=== PATIENT | female | born 1995 | race Caucasian/White ===

== ENCOUNTER 2017-02-19 16:53 | Emergency (ER) | payer BC, MEDICAID ==
[2017-02-19] MEDS ORDERED: ALBUTEROL SULFATE (0.083%) 2.5 MG/3 ML NEB INH ONE (17:03)
[2017-02-19] MEDS ORDERED: DIPHENHYDRAMINE HCL IV 50 MG/ML VIAL IVP ONE (17:03)
[2017-02-19] MEDS ORDERED: METHYLPREDNISOLONE PF 125MG/VIAL IVP ONE (17:06)
--- NOTE | 2017-02-19 17:14 | Emergency Department Record ---
History of Present Illness - General Chief complaint: Allergic Reaction Stated complaint: ALLERGIC REACTION Time Seen by Provider: 02/19/17 17:03 Source: Patient Mode of Arrival: Wheelchair Limitations: No limitations - History of Present Illness Initial Comments: 22 yo female presents with itching, feeling short of breath with a tightness in the throat about 45 minutes after starting Levaquin and Prednisone. She has had sinus drainage, congestion, cough for about one week. She was seen in the [facility] care and started on the medications. This was the first time to her knowledge she has had a quinolone. MD Complaint: Allergic reaction Onset/Timin -: Minutes(s) Exposure: Unknown Symptoms: Itching Severity: Moderate Treatment Prior to Arrival: Steroids (she had 10mg of Prednisone) Previous Allergy History: None - Related Data Previous Rx's Medication Instructions Recorded Clindamycin HCl [Cleocin HCl] 300 mg PO TID #21 capsule 02/19/17 Epinephrine [Epipen] 0.3 mg IM ASDIR PRN #2 syr 02/19/17 Prednisone [Prednisone 20Mg] 20 mg PO BID #10 tab 02/19/17 Allergies Allergy/AdvReac Type Severity Reaction Status Date / Time doxycycline Allergy Intermediate NAUSEA Unverified 02/15/17 15:44 Penicillins Allergy Intermediate VOMITING Unverified 02/15/17 15:44 Travel Screening - Travel/Exposure Within Last 30 Days Have you traveled within the last 30 days?: No Review of Systems Constitutional: Denies: Chills, Fever, Malaise, Weakness Eyes: Denies: Eye discharge ENT: Reports: Congestion, Ear pain, Throat pain Respiratory: Reports: Cough, Wheezes Cardiovascular: Denies: Chest pain, Palpitations, Syncope Endocrine: Denies: Fatigue Gastrointestinal: Denies: Abdominal pain, Diarrhea, Nausea, Vomiting Genitourinary: Denies: Dysuria, Urgency Musculoskeletal: Denies: Arthralgia, Back pain, Myalgia, Neck pain Skin: Reports: Pruritus. Denies: Bruising, Change in color, Rash Neurological: Denies: Headache Psychiatric: Denies: Anxiety Hematological/Lymphatic: Denies: Blood Clots, Easy bleeding, Easy bruising, Swollen glands Past Medical History - SOCIAL HISTORY Smoking Status: Former smoker Alcohol Use: Occassional Drug Use: None - RESPIRATORY Hx Respiratory Disorders: Yes Hx Asthma: Yes - CARDIOVASCULAR Hx Cardio Disorders: No - NEURO Hx Neuro Disorders: Yes Hx Headaches: Yes - GI Hx GI Disorders: No - Hx Genitourinary Disorders: No - ENDOCRINE Hx Endocrine Disorders: No - MUSCULOSKELETAL Hx Musculoskeletal Disorders: No - PSYCH Hx Psych Problems: Yes Hx Anxiety: Yes Hx Depression: Yes - HEMATOLOGY/ONCOLOGY Hx Hematology/Oncology Disorders: No Family Medical History Any Significant Family History?: Yes Hx Alcohol Use: Father, Mother Hx Anxiety: Father, Mother Hx Dementia: Grandparents Hx Depression: Father, Mother Hx Seizures: Mother Physical Exam - General General Appearance: Alert, Oriented x3, Cooperative, No acute distress Limitations: No limitations - Head Head exam: Normal inspection - Eye Eye exam: Normal appearance, PERRL. negative: Conjunctival injection, Periorbital swelling - ENT ENT exam: Mucous membranes moist, Normal orophraynx, TM's normal bilaterally. negative: Mucous membranes dry Ear exam: Normal external inspection. negative: External canal tenderness Nasal Exam: Discharge, Sinus tenderness. negative: Normal inspection, Active bleeding, Dried blood Mouth exam: Normal external inspection, Tongue normal Teeth exam: Normal inspection. negative: Dental caries Throat exam: Normal inspection. negative: Tonsillar erythema, Tonsillomegaly, Tonsillar exudate, R peritonsillar mass - Neck Neck exam: Normal inspection, Full ROM. negative: Lymphadenopathy, Tenderness - Respiratory Respiratory exam: Decreased breath sounds. negative: Accessory muscle use, Chest wall tenderness, Prolonged expiratory, Respiratory distress, Rhonchi, Stridor, Wheezes - Cardiovascular Cardiovascular Exam: Regular rate, Normal rhythm, Normal heart sounds - GI/Abdominal GI/Abdominal exam: Soft - Rectal Rectal exam: Deferred - exam: Deferred - Extremities Extremities exam: Normal inspection, Full ROM, Normal capillary refill. negative: Tenderness - Back Back exam: Reports: Normal inspection, Full ROM. Denies: Muscle spasm, Rash noted, Tenderness - Neurological Neurological exam: Alert, Normal gait, Oriented X3. negative: Altered - Psychiatric Psychiatric exam: Normal affect, Normal mood. negative: Agitated, Anxious - Skin Skin exam: Dry, Intact, Normal color, Warm Course Vital Signs 02/19/17 16:55 Temperature 98.7 F Pulse Rate 102 H Respiratory 18 Rate Blood Pressure 137/86 Pulse Ox 98 - Reevaluation(s) Reevaluation #1: Vitals reviewed No acute distress Mildly diminished lung sounds no strider No hives visible. She feels mildly itchy. 02/19/17 17:13 Reevaluation #2: The patient was rechecked after the breathing treatment She subjectively feels much better She is moving air well and feels significant improvement of the subjective throat symptoms. 02/19/17 17:25 Reevaluation #3: The patient continues to do well The influenza swab was negative for A and B 02/19/17 17:51 Reevaluation #4: The patient is doing well. DC home with Epipen, Prednisone,Clindamycin, RT taught her how to use the Albuterol inhaler that [facility] dispensed. 02/19/17 18:36 Disposition Disposition: Discharge Clinical Impression: Sinusitis Qualifiers: Sinusitis location: unspecified location Chronicity: acute Recurrence: not specified as recurrent Qualified Code(s): J01.90 - Acute sinusitis, unspecified Allergic reaction caused by a drug Qualifiers: Encounter type: initial encounter Qualified Code(s): T78.40XA - Allergy, unspecified, initial encounter Disposition: Home, Self-Care Condition: (1) Good Instructions: Anaphylaxis (ED) Additional Instructions: Return if you have hives, swelling, shortness of breath or any new or concerning symptoms Stop the Levaquin and list it as an allergy Follow up with your doctor to discuss the use of EpiPens You may take Benadryl every 4-6 hours for itching or mild hives Prednisone 40mg daily for 5 days Albuterol 2 puffs every 4 hours if needed Clindamycin three times daily for one week Prescriptions: Clindamycin HCl [Cleocin HCl] 300 mg PO TID #21 capsule Epinephrine [Epipen] 0.3 mg IM ASDIR PRN #2 syr PRN Reason: Anaphylaxis Prednisone [Prednisone 20Mg] 20 mg PO BID #10 tab Forms: Patient Portal Access Time of Disposition: 17:52
[2017-02-19 17:36] LABS: INFLUENZA A NEGATIVE (NEGATIVE); INFLUENZA B NEGATIVE (NEGATIVE)
== END 2017-02-19 18:44 | disposition home or self-care (01) ==
LOC: ER 16:53
DX: T37.8X5A Adverse effect of other specified systemic anti-infectives and antiparasitics, initial encounter (principal); R06.02 Shortness of breath; L29.9 Pruritus, unspecified; R07.0 Pain in throat; J01.90 Acute sinusitis, unspecified
CPT/HCPCS: 87400; 94640; 96374; 96375; 99284; J1200; J2930; J7613

== ENCOUNTER 2017-04-25 23:41 | Emergency (ER) | payer MEDICAID ==
--- NOTE | 2017-04-26 | Emergency Department Record ---
History of Present Illness - General Chief Complaint: Ankle/Foot Injury Stated Complaint: ANKLE INJURY Time Seen by Provider: 04/25/17 23:55 Source: Patient Mode of Arrival: Ambulatory Limitations: No limitations - History of Present Illness Initial Comments: 22 yo female presents to ED with a CC of right foot injury earlier today while walking today in [place]. Patient reports that her foot "twisted", denies ankle pain, denies lower leg pain, and has been able to ambulate following her injury. Patient denies other injury, and denies health problems at her baseline. MD Complaint: Foot injury Onset/Timin -: Hour(s) Injury: Foot: Left Type of Injury: Inversion Place: Street/outdoors Severity: Mild Severity scale (1-10): 2 Improves With: Rest Worsens With: Movement, Weight bearing, Other Context: Fall, Walking Treatments Prior to Arrival: Cold therapy - Related Data Previous Rx's Medication Instructions Recorded Epinephrine [Epipen] 0.3 mg IM ASDIR PRN #2 syr 02/19/17 Allergies Allergy/AdvReac Type Severity Reaction Status Date / Time doxycycline Allergy Intermediate NAUSEA Unverified 02/15/17 15:44 Penicillins Allergy Intermediate VOMITING Unverified 02/15/17 15:44 levofloxacin [From Levaquin] Allergy ANAPHYLAXIS Verified 04/25/17 23:44 Travel Screening - Travel/Exposure Within Last 30 Days Have you traveled within the last 30 days?: No - Travel/Exposure Within Last Year Have you traveled outside the [place] in the last year?: No - Additonal Travel Details Have you been exposed to anyone with a communicable illness?: No - Travel Symptoms Symptom Screening: None Review of Systems Constitutional: Denies: Chills, Fever, Malaise, Night sweats Eyes: Denies: Eye discharge, Eye pain ENT: Denies: Congestion, Ear pain Respiratory: Denies: Cough, Dyspnea Cardiovascular: Denies: Chest pain, Dyspnea on exertion Endocrine: Denies: Fatigue, Heat or cold intolerance Gastrointestinal: Denies: Abdominal pain, Nausea, Vomiting Genitourinary: Denies: Incontinence, Retention Musculoskeletal: Reports: Arthralgia. Denies: Back pain, Gout, Joint swelling Skin: Denies: Bruising, Change in color Neurological: Denies: Abnormal gait, Confusion, Headache, Seizure Psychiatric: Denies: Anxiety Hematological/Lymphatic: Denies: Anemia, Blood Clots Past Medical History - SOCIAL HISTORY Smoking Status: Current every day smoker Alcohol Use: Occassional Drug Use: None - RESPIRATORY Hx Respiratory Disorders: Yes Hx Asthma: Yes - CARDIOVASCULAR Hx Cardio Disorders: No - NEURO Hx Neuro Disorders: Yes Hx Headaches: Yes - GI Hx GI Disorders: No - Hx Genitourinary Disorders: No - ENDOCRINE Hx Endocrine Disorders: No - MUSCULOSKELETAL Hx Musculoskeletal Disorders: No - PSYCH Hx Psych Problems: Yes Hx Anxiety: Yes Hx Depression: Yes - HEMATOLOGY/ONCOLOGY Hx Hematology/Oncology Disorders: No Family Medical History Any Significant Family History?: No Hx Alcohol Use: Father, Mother Hx Anxiety: Father, Mother Hx Dementia: Grandparents Hx Depression: Father, Mother Hx Seizures: Mother Physical Exam - General General Appearance: Alert, Oriented x3, Cooperative, No acute distress Limitations: No limitations - Head Head exam: Atraumatic, Normocephalic, Normal inspection Head exam detail: negative: Abrasion, Contusion, Breen's sign, General tenderness, Hematoma, Laceration - Eye Eye exam: Normal appearance. negative: Conjunctival injection, Periorbital swelling, Periorbital tenderness, Scleral icterus - ENT Ear exam: negative: Auricular hematoma, Auricular trauma Nasal Exam: negative: Active bleeding, Discharge, Dried blood, Foreign body Mouth exam: negative: Drooling, Laceration, Muffled voice, Tongue elevation - Neck Neck exam: Normal inspection. negative: Meningismus, Tenderness - Respiratory Respiratory exam: Normal lung sounds bilaterally. negative: Rales, Respiratory distress, Rhonchi, Stridor - Cardiovascular Cardiovascular Exam: Regular rate, Normal rhythm, Normal heart sounds Peripheral Pulses: 3+: Dorsalis Pedis (R) - GI/Abdominal GI/Abdominal exam: Soft. negative: Rebound, Rigid, Tenderness - Rectal Rectal exam: Deferred - exam: Deferred - Extremities Extremities exam: Tenderness, Other (Mild STS and TTP over the right mid-foot, no pain with palpation over the ankle/proximal fibula, compartments are soft on examination). negative: Calf tenderness, Pedal edema - Back Back exam: Reports: Normal inspection. Denies: CVA tenderness (R), CVA tenderness (L) - Neurological Neurological exam: Alert, Normal gait, Oriented X3 - Psychiatric Psychiatric exam: Normal affect, Normal mood - Skin Skin exam: Normal color. negative: Abrasion Type of lesion: negative: abrasion Course - Reevaluation(s) Reevaluation #1: 04/26/17 00:13 Right Foot: No acute fracture identified Patient was updated on radiology results, pain is well controlled, and the patient appears stable for discharge at this time. Disposition Disposition: Discharge Clinical Impression: Right foot sprain Qualifiers: Encounter type: initial encounter Qualified Code(s): S93.601A - Unspecified sprain of right foot, initial encounter Disposition: Home, Self-Care Condition: (2) Stable Instructions: Foot Contusion (ED) Additional Instructions: Return to ED if your symptoms worsen or if you have any concerns. Ice, Ibuprofen as directed. Follow-up with your family doctor in 3-5 days as directed. Forms: Patient Portal Access Time of Disposition: 00:00
--- NOTE | 2017-04-27 10:10 | RADIOLOGY REPORT ---
EXAM: RIGHT FOOT, THREE VIEWS HISTORY: FALL, PAIN ACROSS THE TOP OF THE RIGHT FOOT. TECHNIQUE: Three views of the right foot were obtained. Comparison: None. Encounter: Initial. FINDINGS: No hallux valgus. No acute fracture or dislocation. No degenerative change. IMPRESSION: NEGATIVE RIGHT FOOT EXAMINATION. JOB NUMBER: [id number] MTDD
== END 2017-04-26 00:25 | disposition home or self-care (01) ==
LOC: ER 23:41
DX: S93.601A Unspecified sprain of right foot, initial encounter (principal); X50.0XXA Overexertion from strenuous movement or load, initial encounter; Y92.410 Unspecified street and highway as the place of occurrence of the external cause
CPT/HCPCS: 99283

== ENCOUNTER 2017-07-24 01:25 | Emergency (ER) | payer MEDICAID ==
[2017-07-24] MEDS ORDERED: 0.9 % SODIUM CHLORIDE 1,000 ML BAG IV ONE (01:43)
[2017-07-24] MEDS ORDERED: DIPHENHYDRAMINE HCL IV 50 MG/ML VIAL IVP ONE (01:43)
[2017-07-24] MEDS ORDERED: ACETAMINOPHEN 1,000 MG/100 ML BTL IVPB ONE (01:44)
--- NOTE | 2017-07-24 01:50 | Emergency Department Record ---
History of Present Illness - General Chief Complaint: Headache Migraine Stated Complaint: MIGRAINE X 4 DAYS/NOW HAVING MEMORY LOSS Time Seen by Provider: 07/24/17 01:34 Source: Patient Mode of Arrival: Ambulatory Limitations: No limitations - History of Present Illness Initial Comments: 22 yo female presents with headache for 4 days that she feels is similar to her migraines. It is frontal. Initially it was gradual onset with some associated nausea and vomiting. She had diarrhea as well. The headache is worse at that end of the day and better in the morning. No vision changes. She feels like she is having memory changes with forgetfulness, trouble remembering tasks at work, and not remembering a drive home. No weakness, no coordination changes. She denies alcohol or drugs. She had onset of migraines at age 11. They were initially frequent but now about 1-2 per years. PCP is the [facility]. MD Complaint: Headache, "Migraine", Other Onset/Timin -: Days(s) Onset Description: Gradual, At rest Location: Frontal Severity scale (1-10): 6 Quality: Aching Consistency: Constant, Getting worse Improves With: Nothing Worsens With: Light Associated Symptoms: Confusion Treatments Prior to Arrival: None - Related Data Previous Rx's Medication Instructions Recorded Epinephrine [Epipen] 0.3 mg IM ASDIR PRN #2 syr 02/19/17 Ondansetron [Zofran Odt] 4 mg PO Q8H #15 tab.rapdis 07/24/17 Allergies Allergy/AdvReac Type Severity Reaction Status Date / Time doxycycline Allergy Intermediate NAUSEA Unverified 07/20/17 14:28 Penicillins Allergy Intermediate VOMITING Unverified 07/20/17 14:28 levofloxacin [From Levaquin] Allergy ANAPHYLAXIS Unverified 07/20/17 14:28 Travel Screening - Travel/Exposure Within Last 30 Days Have you traveled within the last 30 days?: No Review of Systems Constitutional: Denies: Chills, Fever, Weakness Eyes: Denies: Eye discharge, Eye pain, Photophobia ENT: Denies: Congestion, Throat pain Respiratory: Denies: Cough, Dyspnea, Hemoptysis, Stridor, Wheezes Cardiovascular: Denies: Chest pain, Palpitations, Syncope Endocrine: Reports: Fatigue Gastrointestinal: Reports: Diarrhea, Nausea, Vomiting Genitourinary: Denies: Dysuria, Urgency Musculoskeletal: Denies: Arthralgia, Back pain, Myalgia, Neck pain Skin: Denies: Bruising, Change in color, Rash Neurological: Reports: Confusion (memory changes per patient), Headache. Denies : Abnormal gait, Numbness, Seizure, Tingling, Tremors, Vertigo, Weakness Psychiatric: Denies: Anxiety Hematological/Lymphatic: Denies: Blood Clots, Easy bleeding, Easy bruising Past Medical History - SOCIAL HISTORY Smoking Status: Current every day smoker Alcohol Use: Occasional Drug Use: None - RESPIRATORY Hx Respiratory Disorders: Yes Hx Asthma: Yes - CARDIOVASCULAR Hx Cardio Disorders: No - NEURO Hx Neuro Disorders: Yes Hx Headaches: Yes - GI Hx GI Disorders: No - Hx Genitourinary Disorders: No - ENDOCRINE Hx Endocrine Disorders: No - MUSCULOSKELETAL Hx Musculoskeletal Disorders: No - PSYCH Hx Psych Problems: Yes Hx Anxiety: Yes Hx Depression: Yes - HEMATOLOGY/ONCOLOGY Hx Hematology/Oncology Disorders: No Family Medical History Any Significant Family History?: Yes Hx Alcohol Use: Father, Mother Hx Anxiety: Father, Mother Hx Dementia: Grandparents Hx Depression: Father, Mother Hx Seizures: Mother Physical Exam - General General Appearance: Alert, Oriented x3, Cooperative, Other (Answers questions, no congusion, appropriate) Limitations: No limitations - Head Head exam: Atraumatic, Normocephalic, Normal inspection - Eye Eye exam: Normal appearance, PERRL, EOMI. negative: Conjunctival injection, Nystagmus, Periorbital swelling, Scleral icterus - ENT ENT exam: Normal exam, Mucous membranes moist Ear exam: Normal external inspection Nasal Exam: Normal inspection Mouth exam: Normal external inspection Teeth exam: Normal inspection - Neck Neck exam: Normal inspection, Full ROM. negative: Lymphadenopathy, Tenderness - Respiratory Respiratory exam: Normal lung sounds bilaterally. negative: Respiratory distress - Cardiovascular Cardiovascular Exam: Regular rate, Normal rhythm, Normal heart sounds - GI/Abdominal GI/Abdominal exam: Soft. negative: Tenderness - Rectal Rectal exam: Deferred - exam: Deferred - Extremities Extremities exam: Normal inspection, Full ROM, Normal capillary refill. negative: Tenderness - Back Back exam: Reports: Normal inspection, Full ROM. Denies: Muscle spasm, Rash noted, Tenderness - Neurological Neurological exam: Alert, CN II-XII intact, Normal gait, Oriented X3, Reflexes normal. negative: Abnormal gait, Altered, Motor sensory deficit - Psychiatric Psychiatric exam: Flat affect. negative: Agitated, Anxious - Skin Skin exam: Dry, Intact, Normal color, Warm. negative: Cyanosis, Diaphoretic, Erythema Course Vital Signs 07/24/17 01:37 Temperature 98.1 F Pulse Rate [ 78 Left Brachial] Respiratory 18 Rate Blood Pressure 124/74 [Left Arm] Pulse Ox 99 - Reevaluation(s) Reevaluation #1: The patient is A and O x's 4 currently She is not confused, no issues with recall of current or remote events Given her recent memory issues labs, UA, CT, alcohol and UDS ordered 07/24/17 01:51 Reevaluation #2: HCT negative 07/24/17 02:50 All labs, UDS, Alcohol negative 07/24/17 02:50 Medical Decision Making - Lab Data Result diagrams: 07/24/17 01:55 07/24/17 01:55 Disposition Disposition: Discharge Clinical Impression: Migraine Qualifiers: Migraine type: unspecified Status migrainosus presence: without status migrainosus Intractability: not intractable Qualified Code(s): G43.909 - Migraine, unspecified, not intractable, without status migrainosus Disposition: Home, Self-Care Condition: (1) Good Instructions: Migraine Headache (ED) Additional Instructions: Call your doctor for close follow up this week Return if worse, fever, pain, nausea, dizzy or concerns Prescriptions: Ondansetron [Zofran Odt] 4 mg PO Q8H #15 tab.rapdis Forms: Patient Portal Access Time of Disposition: 02:58 Quality - Quality Measures Quality Measures: N/A - Blood Pressure Screening Does Patient Have Any of the Following: No Blood Pressure Classification: Pre-Hypertensive BP Reading Systolic Measurement: 124 Diastolic Measurement: 74 Screening for High Blood Pressure: < Pre-Hypertensive BP, F/U Documented > [ G8950] Pre-Hypertensive Follow-up Interventions: Referral to alternative/primary care provider.
[2017-07-24 02:16] LABS: BASO % 0.6 % (0-6); EOS % 1.2 % (0-6); GRAN % 47.4 % (47-80); HEMATOCRIT 37.9 % (35.0-47.0); HEMOGLOBIN 12.9 gm/dl (11.6-16.0); LYMPH % 42.4 % (16-45); MEAN CELL VOLUME 86.7 fl (81-97); MEAN CORPUSCULAR HEMOGLOBIN 29.5 pg (27-33); MEAN PLATELET VOLUME 9.5 fl (7.4-10.4); MONO % 8.4 % (0-9); PLATELET COUNT 412 K/uL (130-400); RED BLOOD COUNT 4.37 M/uL (3.80-5.40); RED CELL DISTRIBUTION WIDTH 12.1 % (11.5-14.5); WHITE BLOOD COUNT W/O DIFF 12.2 K/uL (4.2-12.2)
[2017-07-24 02:17] LABS: AMPHETAMINE SCREEN URINE NOT DETECTED; BARBITURATE SCREEN URINE NOT DETECTED; BENZODIAZEPINE SCREEN URINE NOT DETECTED; COCAINE SCREEN URINE NOT DETECTED; HCG,QUALITATIVE URINE NEGATIVE (NEGATIVE); METHADONE SCREEN URINE NOT DETECTED; METHAMPHETAMINE SCREEN NOT DETECTED; OPIATE SCREEN URINE NOT DETECTED; OXYCODONE SCREEN URINE NOT DETECTED; PHENCYCLIDINE SCREEN URINE NOT DETECTED; PROPOXYPHENE SCREEN URINE NOT DETECTED; THC SCREEN URINE NOT DETECTED; TRICYCLIC ANTIDEPRESSANT SCRN NOT DETECTED; URINE APPEARANCE CLEAR; URINE BILIRUBIN NEGATIVE (NEGATIVE); URINE BLOOD NEGATIVE (NEGATIVE); URINE COLOR COLORLESS; URINE GLUCOSE (UA) NEGATIVE (NEGATIVE); URINE KETONE NEGATIVE (NEGATIVE); URINE LEUKOCYTE ESTERASE NEGATIVE (NEGATIVE); URINE NITRITE NEGATIVE (NEGATIVE); URINE PROTEIN NEGATIVE (NEGATIVE); URINE UROBILINOGEN 0.2 E.U./dL (0.20 - 1.00)
[2017-07-24 02:26] LABS: ALB/GLOB RATIO 1.4 (1.1-1.8); ALBUMIN 4.5 gm/dL (3.5-5.0); ALKALINE PHOSPHATASE 85 U/L (38-126); ALT/SGPT 51 U/L (9-52); ANION GAP 8.7 (7-16); AST/SGOT 25 U/L (14-36); BILIRUBIN,TOTAL 0.52 mg/dL (0.2-1.3); BLOOD UREA NITROGEN 13 mg/dL (7-17); CARBON DIOXIDE 25.3 mmol/L (22-30); CREATININE 0.8 mg/dL (0.52-1.04); EST GLOMERULAR FILTRATION RATE > 60 ml/min; GLUCOSE,RANDOM 96 mg/dL (70-110); TOTAL PROTEIN 7.7 gm/dL (6.3-8.2)
--- NOTE | 2017-07-24 21:54 | CT SCAN REPORT ---
EXAM: CT SCAN HEAD WO CONTRAST HISTORY: ACUTE GENERALIZED MIGRAINE AURA, AFFECT NOT SPECIFIED. MEMORY LOSS PER PATIENT. COMPARISON: None. TECHNIQUE: Contiguous axial images from the cerebral convexities to the foramen magnum were obtained without contrast. FINDINGS: Brain volume is normal. No acute intracranial hemorrhage, mass effect , or midline shift. No CT evidence of acute infarct. Ventricles, basal cisterns , and sulci are within normal limits. Osseous structures, soft tissues, and paranasal sinuses are unremarkable. IMPRESSION: NORMAL HEAD CT. JOB NUMBER: [id number] [facility]
== END 2017-07-24 03:18 | disposition home or self-care (01) ==
LOC: ER 01:25
DX: G43.909 Migraine, unspecified, not intractable, without status migrainosus (principal); R11.2 Nausea with vomiting, unspecified; R19.7 Diarrhea, unspecified
CPT/HCPCS: 99284 ×2; 96374; 96375; 85025; 80053; 81003; 81025; 80305; 70450; G0480; 80320; J1200; J7030

== ENCOUNTER 2017-08-29 15:15 | Emergency (ER) | payer MEDICAID ==
[2017-08-29] MEDS ORDERED: ONDANSETRON 4 MG ODT TABLET SL ONE (15:32)
--- NOTE | 2017-08-29 15:37 | Emergency Department Record ---
History of Present Illness - General Chief complaint: Vomiting Stated complaint: NAUSEA,VOMITTING,BLACKED OUT Time Seen by Provider: 08/29/17 15:19 Source: Patient Mode of Arrival: Ambulatory Limitations: No limitations - History of Present Illness Initial comments: The patient states she is here due to having a week of nausea intermittently with vomiting. She also has been very stressed out at work recently and called in sick today so she needs a work note. The nausea has mostly resolved today and she has had no vomiting or diarrhea for a few days. The patient states she believes her main problem is that she is under a lot of stress and also has pain over her entire body. The total body pain is also chronic and not new today. She states she may have blacked out yesterday from the stress when she was working but she never did fall or have any LOC. She also did finish her work shift. complaint: Nausea Onset/Timin -: Week(s) Description of Vomiting: Food contents, Watery Consistency: Intermittent Improves with: None Worsens with: None - Related Data Home Medications Medication Instructions Recorded Confirmed Last Taken Alprazolam [Alprazolam] 0.25 mg PO ASDIR 08/29/17 08/29/17 Unknown Previous Rx's Medication Instructions Recorded Epinephrine [Epipen] 0.3 mg IM ASDIR PRN #2 syr 02/19/17 Ondansetron [Zofran Odt] 4 mg SL .Q4-6H PRN #8 tab.rapdis 08/29/17 Allergies Allergy/AdvReac Type Severity Reaction Status Date / Time doxycycline Allergy Intermediate NAUSEA Verified 08/29/17 15:20 Penicillins Allergy Intermediate VOMITING Verified 08/29/17 15:20 levofloxacin [From Levaquin] Allergy ANAPHYLAXIS Verified 08/29/17 15:20 Travel Screening - Travel/Exposure Within Last 30 Days Have you traveled within the last 30 days?: No - Travel/Exposure Within Last Year Have you traveled outside the [place] in the last year?: No - Additonal Travel Details Have you been exposed to anyone with a communicable illness?: No - Travel Symptoms Symptom Screening: None Review of Systems Constitutional: Denies: Chills, Fever Eyes: Denies: Eye discharge ENT: Denies: Congestion Respiratory: Denies: Cough, Dyspnea Past Medical History - SOCIAL HISTORY Smoking Status: Former smoker Alcohol Use: None Drug Use: None - RESPIRATORY Hx Respiratory Disorders: Yes Hx Asthma: Yes - CARDIOVASCULAR Hx Cardio Disorders: No - NEURO Hx Neuro Disorders: Yes Hx Headaches: Yes - GI Hx GI Disorders: No - Hx Genitourinary Disorders: No - ENDOCRINE Hx Endocrine Disorders: No - MUSCULOSKELETAL Hx Musculoskeletal Disorders: No - PSYCH Hx Psych Problems: Yes Hx Anxiety: Yes Hx Depression: Yes - HEMATOLOGY/ONCOLOGY Hx Hematology/Oncology Disorders: No Family Medical History Any Significant Family History?: Yes Hx Alcohol Use: Father, Mother Hx Anxiety: Father, Mother Hx Dementia: Grandparents Hx Depression: Father, Mother Hx Seizures: Mother Physical Exam - General General Appearance: Alert, Oriented x3, Cooperative, No acute distress - Head Head exam: Atraumatic, Normocephalic, Normal inspection - Eye Eye exam: Normal appearance, PERRL - ENT Throat exam: Normal inspection. negative: Tonsillar erythema, Tonsillar exudate - Neck Neck exam: Normal inspection, Full ROM. negative: Tenderness - Respiratory Respiratory exam: Normal lung sounds bilaterally. negative: Respiratory distress - Cardiovascular Cardiovascular Exam: Regular rate, Normal rhythm, Normal heart sounds - GI/Abdominal GI/Abdominal exam: Soft, Normal bowel sounds. negative: Tenderness - Extremities Extremities exam: Normal inspection, Full ROM, Normal capillary refill. negative: Tenderness - Neurological Neurological exam: Alert, Normal gait. negative: Abnormal gait, Motor sensory deficit - Psychiatric Psychiatric exam: Flat affect Course Vital Signs 08/29/17 15:23 Temperature 98.4 F Pulse Rate 83 Respiratory 18 Rate Blood Pressure 122/72 Pulse Ox 98 - Reevaluation(s) Reevaluation #1: The patient is resting comfortably. I did discuss the normal UA with her and the need for F/U. 08/29/17 15:54 Disposition Disposition: Discharge Clinical Impression: Nausea Disposition: Home, Self-Care Condition: (1) Good Instructions: Acute Nausea and Vomiting (ED) Additional Instructions: Please use the Zofran if needed. Please see your PCP this week for recheck. Prescriptions: Ondansetron [Zofran Odt] 4 mg SL .Q4-6H PRN #8 tab.rapdis PRN Reason: Nausea Forms: Patient Portal Access Time of Disposition: 15:55 Quality - Quality Measures Quality Measures: N/A - Blood Pressure Screening View Details: Yes Does Patient Have Any of the Following: No Blood Pressure Classification: Pre-Hypertensive BP Reading Systolic Measurement: 122 Diastolic Measurement: 72 Screening for High Blood Pressure: < Pre-Hypertensive BP, F/U Documented > [ G8950] Pre-Hypertensive Follow-up Interventions: Referral to alternative/primary care provider.
[2017-08-29 15:46] LABS: URINE APPEARANCE CLEAR; URINE BILIRUBIN NEGATIVE (NEGATIVE); URINE BLOOD NEGATIVE (NEGATIVE); URINE COLOR YELLOW; URINE GLUCOSE (UA) NEGATIVE (NEGATIVE); URINE KETONE NEGATIVE (NEGATIVE); URINE LEUKOCYTE ESTERASE NEGATIVE (NEGATIVE); URINE NITRITE NEGATIVE (NEGATIVE); URINE PROTEIN NEGATIVE (NEGATIVE); URINE UROBILINOGEN 0.2 E.U./dL (0.20 - 1.00)
== END 2017-08-29 16:02 | disposition home or self-care (01) ==
LOC: ER 15:15
DX: R11.0 Nausea (principal)
CPT/HCPCS: 81003; 81025; 99282

== ENCOUNTER 2018-03-07 02:58 | Emergency (ER) | payer MEDICAID ==
--- NOTE | 2018-03-07 03:17 | Emergency Department Record ---
History of Present Illness - General Chief complaint: Rash Stated complaint: ALLERGIC REACTION? Time Seen by Provider: 03/07/18 02:58 Source: Patient Mode of Arrival: Ambulatory Limitations: No limitations - History of Present Illness Initial comments: 23 yo female presents to ED for evaluation of "bruising under the arms and decreased sleep" after being started on a liquid steroid medication for pharyngitis 36 hours ago. Patient reports that she was seen and evaluated at an urgent care Wednesday for sore throat symptoms, strep was negative, was started on the steroid for her sore throat symptoms. Patient denies throat swelling or difficulty swallowing, denies health problems at her baseline. MD complaint: Rash Onset/Timin -: Days(s) Location: LUE, RUE Severity: Mild Consistency: Constant Improves with: None Worsens with: None Context: None Associated symptoms: Denies other symptoms Treatments Prior to Arrival: Corticosteroid - Related Data Previous Rx's Medication Instructions Recorded Epinephrine [Epipen] 0.3 mg IM ASDIR PRN #2 syr 02/19/17 Hyoscyamine Sulfate [Levsin-Sl] 0.125 mg SL Q8H PRN #15 tab.subl 02/17/18 Allergies Allergy/AdvReac Type Severity Reaction Status Date / Time doxycycline Allergy Intermediate NAUSEA Unverified 02/17/18 18:38 Penicillins Allergy Intermediate VOMITING Unverified 02/17/18 18:38 levofloxacin [From Levaquin] Allergy ANAPHYLAXIS Unverified 02/17/18 18:38 Review of Systems Constitutional: Denies: Chills, Fever, Malaise, Night sweats Eyes: Denies: Eye discharge, Eye pain ENT: Reports: Throat pain. Denies: Congestion, Ear pain, Epistaxis Respiratory: Denies: Cough, Dyspnea Cardiovascular: Denies: Chest pain, Dyspnea on exertion Endocrine: Denies: Fatigue, Heat or cold intolerance Gastrointestinal: Denies: Abdominal pain, Nausea, Vomiting Genitourinary: Denies: Incontinence, Retention Musculoskeletal: Denies: Arthralgia, Back pain Skin: Reports: Bruising. Denies: Change in color Neurological: Denies: Abnormal gait, Confusion, Headache, Seizure Psychiatric: Denies: Anxiety Hematological/Lymphatic: Denies: Anemia, Blood Clots Past Medical History - SOCIAL HISTORY Smoking Status: Current every day smoker Drug Use: None - RESPIRATORY Hx Respiratory Disorders: Yes Hx Asthma: Yes - CARDIOVASCULAR Hx Cardio Disorders: No - NEURO Hx Neuro Disorders: Yes Hx Headaches: Yes - GI Hx GI Disorders: No - Hx Genitourinary Disorders: No - ENDOCRINE Hx Endocrine Disorders: No - MUSCULOSKELETAL Hx Musculoskeletal Disorders: No - PSYCH Hx Psych Problems: Yes Hx Anxiety: Yes Hx Depression: Yes - HEMATOLOGY/ONCOLOGY Hx Hematology/Oncology Disorders: No Family Medical History Hx Alcohol Use: Father, Mother Hx Anxiety: Father, Mother Hx Dementia: Grandparents Hx Depression: Father, Mother Hx Seizures: Mother Physical Exam - General General Appearance: Alert, Oriented x3, Cooperative, No acute distress Limitations: No limitations - Head Head exam: Atraumatic, Normocephalic, Normal inspection Head exam detail: negative: Abrasion, Contusion, Breen's sign, General tenderness, Hematoma, Laceration - Eye Eye exam: Normal appearance. negative: Conjunctival injection, Periorbital swelling, Periorbital tenderness, Scleral icterus - ENT Ear exam: negative: Auricular hematoma, Auricular trauma Nasal Exam: negative: Active bleeding, Discharge, Dried blood, Foreign body Mouth exam: negative: Drooling, Laceration, Muffled voice, Tongue elevation Throat exam: Tonsillar erythema. negative: Tonsillomegaly, R peritonsillar mass , L peritonsillar mass - Neck Neck exam: Normal inspection. negative: Meningismus, Tenderness - Respiratory Respiratory exam: Normal lung sounds bilaterally. negative: Rales, Respiratory distress, Rhonchi, Stridor - Cardiovascular Cardiovascular Exam: Regular rate, Normal rhythm, Normal heart sounds - GI/Abdominal GI/Abdominal exam: Soft. negative: Rebound, Rigid, Tenderness - Rectal Rectal exam: Deferred - exam: Deferred - Extremities Extremities exam: Normal inspection, Other (The "bruising" to the axilla bialterally is related to pigmentation to the axilla, ). negative: Calf tenderness, Pedal edema, Tenderness - Back Back exam: Denies: CVA tenderness (R), CVA tenderness (L) - Neurological Neurological exam: Alert, Normal gait, Oriented X3 - Psychiatric Psychiatric exam: Normal affect, Normal mood - Skin Skin exam: Normal color. negative: Abrasion Type of lesion: negative: abrasion Course - Reevaluation(s) Reevaluation #1: 03/07/18 03:21 Patient has no clinical evidence for allergic reaction in examination, normal lung sounds, no hives, and no uvular edema or throat swelling symptoms. Patient's "bruising" appears to be the pigmentation of the axilla bilaterally, no ecchymosis is present. Patient also reports decreased ability to sleep ( likely side effect of steroid). Patient appears stable for discharge at this time. Disposition Disposition: Discharge Clinical Impression: Adverse effects of medication Qualifiers: Encounter type: initial encounter Qualified Code(s): T88.7XXA - Unspecified adverse effect of drug or medicament, initial encounter Disposition: Home, Self-Care Condition: (2) Stable Instructions: Adverse Drug Reaction (ED) Additional Instructions: Return to ED if your symptoms worsen or if you have any concerns. Follow-up with your family doctor in 3-5 days as directed. Forms: Patient Portal Access Time of Disposition: 03:17 Quality - Quality Measures Quality Measures: N/A - Blood Pressure Screening Does Patient Have Any of the Following: No Blood Pressure Classification: Pre-Hypertensive BP Reading Systolic Measurement: 120 Diastolic Measurement: 72 Screening for High Blood Pressure: < Pre-Hypertensive BP, F/U Documented > [ G8950] Pre-Hypertensive Follow-up Interventions: Referral to alternative/primary care provider.
== END 2018-03-07 03:21 | disposition home or self-care (01) ==
LOC: ER 02:58
DX: L27.0 Generalized skin eruption due to drugs and medicaments taken internally (principal); T49.6X5A Adverse effect of otorhinolaryngological drugs and preparations, initial encounter; F17.210 Nicotine dependence, cigarettes, uncomplicated
CPT/HCPCS: 99282

== ENCOUNTER 2018-04-09 21:05 | Emergency (ER) | payer MEDICAID ==
--- NOTE | 2018-04-09 21:29 | Emergency Department Record ---
History of Present Illness - General Chief complaint: ENT Stated complaint: SORE THROAT Time Seen by Provider: 04/09/18 21:23 Source: Patient Mode of Arrival: Ambulatory - History of Present Illness Initial comments: The patient states she developed a yellow productive cough yesterday. Today she was sleeping until about an hour ago when she awakened with a feeling of her throat swelling/difficulty breathing. It lasted for a bit after she awakened , so she came her to be checked. She denies exposure to strep, fevers, chills , SOB or symptoms now. She states she has allergies but takes nothing for them. She does have some clear nasal congestion currently. Onset/Timin -: Hour(s) Location: Throat Severity: Mild Severity scale (1-10): 6 Quality: Burning Consistency: Constant Improves with: None Worsens with: None Associated Symptoms: Cough - Related Data Previous Rx's Medication Instructions Recorded Epinephrine [Epipen] 0.3 mg IM ASDIR PRN #2 syr 02/19/17 Hyoscyamine Sulfate [Levsin-Sl] 0.125 mg SL Q8H PRN #15 tab.subl 02/17/18 Allergies Allergy/AdvReac Type Severity Reaction Status Date / Time doxycycline Allergy Intermediate NAUSEA Verified 04/09/18 21:08 Penicillins Allergy Intermediate VOMITING Verified 04/09/18 21:08 levofloxacin [From Levaquin] Allergy ANAPHYLAXIS Verified 04/09/18 21:08 Travel Screening - Travel/Exposure Within Last 30 Days Have you traveled within the last 30 days?: No - Travel/Exposure Within Last Year Have you traveled outside the [place] in the last year?: No - Additonal Travel Details Have you been exposed to anyone with a communicable illness?: No - Travel Symptoms Symptom Screening: None Review of Systems Reviewed: No additional complaints except as noted below Constitutional: Reports: As per HPI. Denies: Chills, Fever, Malaise, Night sweats, Weakness, Weight change Eyes: Reports: As per HPI. Denies: Eye discharge, Eye pain, Photophobia, Vision change ENT: Reports: As per HPI. Denies: Congestion, Dental pain, Ear pain, Epistaxis , Hearing loss, Throat pain Respiratory: Reports: As per HPI. Denies: Cough, Dyspnea, Hemoptysis, Stridor, Wheezes Cardiovascular: Reports: As per HPI. Denies: Arrhythmia, Chest pain, Dyspnea on exertion, Edema, Murmurs, Orthopnea, Palpitations, Paroxysmal nocturnal dyspnea, Rheumatic Fever, Syncope Endocrine: Reports: As per HPI. Denies: Fatigue, Heat or cold intolerance, Polydipsia, Polyuria Gastrointestinal: Reports: As per HPI. Denies: Abdominal pain, Constipation, Diarrhea, Hematemesis, Hematochezia, Melena, Nausea, Vomiting Genitourinary: Reports: As per HPI. Denies: Abnormal menses, Discharge, Dyspareunia, Dysuria, Frequency, Hematuria, Incontinence, Retention, Urgency Musculoskeletal: Reports: As per HPI. Denies: Arthralgia, Back pain, Gout, Joint swelling, Myalgia, Neck pain Skin: Reports: As per HPI. Denies: Bruising, Change in color, Change in hair/ nails, Lesions, Pruritus, Rash Neurological: Reports: As per HPI. Denies: Abnormal gait, Confusion, Headache, Numbness, Paresthesias, Seizure, Tingling, Tremors, Vertigo, Weakness Psychiatric: Reports: As per HPI. Denies: Anxiety, Auditory hallucinations, Depression, Homicidal thoughts, Suicidal thoughts, Visual hallucinations Hematological/Lymphatic: Reports: As per HPI. Denies: Anemia, Blood Clots, Easy bleeding, Easy bruising, Swollen glands Past Medical History - SOCIAL HISTORY Smoking Status: Current some day smoker Alcohol Use: Occasional Drug Use: None - RESPIRATORY Hx Respiratory Disorders: Yes Hx Asthma: Yes - CARDIOVASCULAR Hx Cardio Disorders: No - NEURO Hx Neuro Disorders: Yes Hx Headaches: Yes - GI Hx GI Disorders: No - Hx Genitourinary Disorders: No - ENDOCRINE Hx Endocrine Disorders: No - MUSCULOSKELETAL Hx Musculoskeletal Disorders: No - PSYCH Hx Psych Problems: Yes Hx Anxiety: Yes Hx Depression: Yes - HEMATOLOGY/ONCOLOGY Hx Hematology/Oncology Disorders: No Family Medical History Any Significant Family History?: No Hx Alcohol Use: Father, Mother Hx Anxiety: Father, Mother Hx Dementia: Grandparents Hx Depression: Father, Mother Hx Seizures: Mother Physical Exam - General General Appearance: Alert, Oriented x3, Cooperative, No acute distress - Head Head exam: Normal inspection - Eye Eye exam: Normal appearance, PERRL, EOMI Pupils: Normal accommodation - ENT ENT exam: Normal exam, Mucous membranes moist, Normal external ear exam, Normal orophraynx, TM's normal bilaterally Ear exam: Normal external inspection. negative: External canal tenderness Nasal Exam: Normal inspection. negative: Discharge, Sinus tenderness Mouth exam: Normal external inspection, Tongue normal. negative: Drooling, Muffled voice, Tongue elevation, Trismus Teeth exam: Normal inspection. negative: Dental caries Throat exam: Normal inspection, Other (no stridor or drooling, no uvular edema.) . negative: Tonsillar erythema, Tonsillomegaly, Tonsillar exudate - Neck Neck exam: Normal inspection, Full ROM. negative: Lymphadenopathy, Meningismus , Tenderness - Respiratory Respiratory exam: Normal lung sounds bilaterally. negative: Accessory muscle use, Decreased breath sounds, Prolonged expiratory, Rales, Respiratory distress , Rhonchi, Stridor, Wheezes - Cardiovascular Cardiovascular Exam: Regular rate, Normal rhythm, Normal heart sounds - GI/Abdominal GI/Abdominal exam: Soft, Normal bowel sounds. negative: Tenderness - Rectal Rectal exam: Deferred - exam: Deferred - Extremities Extremities exam: Normal inspection, Full ROM, Normal capillary refill. negative: Tenderness - Back Back exam: Reports: Normal inspection, Full ROM. Denies: Muscle spasm, Rash noted, Tenderness - Neurological Neurological exam: Alert, Normal gait, Oriented X3, Reflexes normal - Psychiatric Psychiatric exam: Normal affect, Normal mood - Skin Skin exam: Dry, Intact, Normal color, Warm Course Vital Signs 04/09/18 21:14 Temperature 98.0 F Pulse Rate [ 91 H Pulse Ox Probe] Respiratory 18 Rate Blood Pressure 109/71 [Left Arm] Pulse Ox 98 Medical Decision Making - Management Options MDM Management: No Additional Work-up Planned Disposition Disposition: Discharge Clinical Impression: Viral syndrome, Environmental allergies Condition: (1) Good Instructions: Viral Syndrome (ED), Allergies (ED) Additional Instructions: Home, rest. Follow up with PCP Dr Cardona as needed. Quality - Quality Measures Quality Measures: N/A - Blood Pressure Screening Does Patient Have Any of the Following: No Blood Pressure Classification: Normal BP Reading Systolic Measurement: 109 Diastolic Measurement: 71 Screening for High Blood Pressure: < Normal BP, F/U Not Required > [G8783]
[2018-04-09] MEDS ORDERED: METHYLPREDNISOLONE PF 125MG/VIAL IM ONE (21:30)
== END 2018-04-09 21:57 | disposition home or self-care (01) ==
LOC: ER 21:05
DX: T78.49XA Other allergy, initial encounter (principal); B37.9 Candidiasis, unspecified; R06.00 Dyspnea, unspecified; J02.9 Acute pharyngitis, unspecified; R05 Cough; F17.210 Nicotine dependence, cigarettes, uncomplicated
CPT/HCPCS: 96372; 99283; J2930

== ENCOUNTER 2019-10-19 16:14 | Emergency (ER) | payer MEDICAID ==
[2019-10-19] MEDS ORDERED: 0.9 % SODIUM CHLORIDE 1,000 ML BAG IV ONE (16:31)
--- NOTE | 2019-10-19 16:34 | Emergency Department Record ---
History of Present Illness - General Chief complaint: Fatigue and Weakness Stated complaint: WEAK AFTER GIVING BLOOD Time Seen by Provider: 10/19/19 16:28 Source: Patient Mode of Arrival: Ambulatory Limitations: No limitations - History of Present Illness Initial comments: The patient is here due to being very weak all day ever since she gave plasma this AM. She has had similar reactions in the past with giving plasma. She denies any AP, ZARATE, CP, SOB, or fevers. MD Complaint: Generalized weakness Onset/Timin -: Hour(s) Location: Generalized Severity: Mild Consistency: Constant Improves with: Rest Worsens with: Exertion Associated Symptoms: Nausea/vomiting - [place] Coma Scale Eye Response: (4) Open spontaneously Motor Response: (6) Obeys commands Verbal Response: (5) Oriented [place] Total: 15 - Related Data Allergies Allergy/AdvReac Type Severity Reaction Status Date / Time doxycycline Allergy Intermediate NAUSEA Unverified 10/19/19 16:45 Penicillins Allergy Intermediate VOMITING Unverified 10/19/19 16:45 clindamycin Allergy Mild VOMITING Unverified 10/19/19 16:45 levofloxacin [From Levaquin] Allergy ANAPHYLAXIS Unverified 10/19/19 16:45 Travel Screening - Travel/Exposure Within Last 30 Days Have you traveled within the last 30 days?: No - Travel/Exposure Within Last Year Have you traveled outside the [place] in the last year?: No - Additonal Travel Details Have you been exposed to anyone with a communicable illness?: No - Travel Symptoms Symptom Screening: None Review of Systems Constitutional: Reports: Malaise. Denies: Chills, Fever Eyes: Denies: Eye discharge ENT: Denies: Throat pain Respiratory: Denies: Cough, Dyspnea Cardiovascular: Denies: Chest pain Endocrine: Reports: Fatigue Past Medical History - SOCIAL HISTORY Smoking Status: Former smoker Alcohol Use: Occasional Drug Use: None - RESPIRATORY Hx Respiratory Disorders: Yes Hx Asthma: Yes - CARDIOVASCULAR Hx Cardio Disorders: No - NEURO Hx Neuro Disorders: Yes Hx Headaches: Yes - GI Hx GI Disorders: No - Hx Genitourinary Disorders: No - ENDOCRINE Hx Endocrine Disorders: No - MUSCULOSKELETAL Hx Musculoskeletal Disorders: No - PSYCH Hx Psych Problems: Yes Hx Anxiety: Yes Hx Depression: Yes - HEMATOLOGY/ONCOLOGY Hx Hematology/Oncology Disorders: No Family Medical History Any Significant Family History?: Yes Hx Alcohol Use: Father, Mother Hx Anxiety: Father, Mother Hx Dementia: Grandparents Hx Depression: Father, Mother Hx Seizures: Mother Physical Exam - General General Appearance: Alert, Oriented x3, Cooperative, No acute distress - Head Head exam: Atraumatic, Normocephalic - Eye Eye exam: Normal appearance, PERRL - ENT Throat exam: Normal inspection. negative: Tonsillar erythema, Tonsillar exudate - Neck Neck exam: Normal inspection, Full ROM. negative: Tenderness - Respiratory Respiratory exam: Normal lung sounds bilaterally. negative: Respiratory distress - Cardiovascular Cardiovascular Exam: Regular rate, Normal rhythm, Normal heart sounds - GI/Abdominal GI/Abdominal exam: Soft, Normal bowel sounds. negative: Rebound, Rigid, Tenderness - Extremities Extremities exam: Normal inspection, Full ROM, Normal capillary refill. negative: Tenderness - Back Back exam: Reports: Normal inspection - Neurological Neurological exam: Alert, Normal gait. negative: Abnormal gait, Motor sensory deficit Course Vital Signs 10/19/19 16:22 Temperature 98.8 F Pulse Rate 88 Respiratory 18 Rate Blood Pressure 121/73 Pulse Ox 98 - Reevaluation(s) Reevaluation #1: I did discuss the normal lab tests with the patient. She is to not give Plasma in the future and rest tonight and to drink plenty of fluids. She is to return to the ER for any worsening symptoms. 10/19/19 17:34 Medical Decision Making - Data Complexity MDM Data: Labs Ordered and/or Reviewed - Lab Data Result diagrams: 10/19/19 16:48 10/19/19 16:48 Disposition Disposition: Discharge Clinical Impression: Weakness Disposition: Home, Self-Care Condition: (2) Stable Instructions: Fatigue (ED) Additional Instructions: Please drink plenty of fluids and please do not give Plasma again. Return to the ER for any worsening symptoms. Forms: Patient Portal Access Time of Disposition: 17:33 Quality - Quality Measures Quality Measures: N/A - Blood Pressure Screening View Details: Yes Does Patient Have Any of the Following: No Blood Pressure Classification: Pre-Hypertensive BP Reading Systolic Measurement: 121 Diastolic Measurement: 73 Screening for High Blood Pressure: < Pre-Hypertensive BP, F/U Documented > [G8950] Pre-Hypertensive Follow-up Interventions: Referral to alternative/primary care provider.
[2019-10-19 16:55] LABS: ABSOLUTE NEUTROPHIL COUNT 8.67; BASO % 0.4 % (0-6); EOS % 1.3 % (0-6); GRAN % 62.4 % (47-80); HEMATOCRIT 41.3 % (35.0-47.0); HEMOGLOBIN 13.7 gm/dl (11.6-16.0); LYMPH % 26.5 % (16-45); MEAN CELL VOLUME 89.2 fl (81-97); MEAN CORPUSCULAR HEMOGLOBIN 29.6 pg (27-33); MEAN CORPUSCULAR HGB CONC 33.2 g/dl (32-36); MEAN PLATELET VOLUME 9.4 fl (7.4-10.4); MONO % 9.4 % (0-9); PLATELET COUNT 389 K/uL (130-400); RED BLOOD COUNT 4.63 M/uL (3.80-5.40); RED CELL DISTRIBUTION WIDTH 13.2 % (11.5-14.5); WHITE BLOOD COUNT W/O DIFF 13.9 K/uL (4.2-12.2)
[2019-10-19 17:07] LABS: BLOOD UREA NITROGEN 8 mg/dL (6-20); CREATININE 0.6 mg/dL (0.5-0.9); EST GLOMERULAR FILTRATION RATE > 60 mL/min; TOTAL PROTEIN 6.4 g/dL (6.6-8.7)
[2019-10-19 17:09] LABS: GLUCOSE,RANDOM 115 mg/dL (74-109)
[2019-10-19 17:12] LABS: ALB/GLOB RATIO 1.5 (1.1-1.8); ALBUMIN 3.8 g/dL (4.0-5.0); ALKALINE PHOSPHATASE 73 U/L (35-104); ALT/SGPT 43 U/L (<33); AST/SGOT 29 U/L (10.0-35.0)
== END 2019-10-19 17:39 | disposition home or self-care (01) ==
LOC: ER 16:14
DX: R53.1 Weakness (principal); R53.83 Other fatigue
CPT/HCPCS: 80053; 84703; 85025; 99283; 99284; J7030

== ENCOUNTER 2019-12-09 10:33 | Emergency (ER) | payer MEDICAID ==
[2019-12-09 11:00] LABS: STREP A SCREEN NEGATIVE (NEGATIVE)
[2019-12-09] MEDS ORDERED: PREDNISONE 20 MG TAB PO ONE (11:05)
[2019-12-09 11:10] LABS: INFLUENZA A NEGATIVE (NEGATIVE); INFLUENZA B NEGATIVE (NEGATIVE)
--- NOTE | 2019-12-09 11:16 | Emergency Department Record ---
History of Present Illness - General Chief Complaint: Cough Stated Complaint: COUGH Time Seen by Provider: 12/09/19 10:45 Source: Patient Mode of Arrival: Ambulatory - History of Present Illness Initial Comments: Patient has cough and started 4 days ago and she has asthma and uses an inhaler albuterol and was seen at [facility] 2 days ago and not getting better. Pateint denies and has implanted control device Onset/Timin -: Days(s) Severity: Moderate Severity scale (1-10): 7 Consistency: Constant, Intermittent - Related Data Previous Rx's Medication Instructions Recorded Prednisone [Prednisone 20Mg] 20 mg PO BID #10 tab 12/09/19 Allergies Allergy/AdvReac Type Severity Reaction Status Date / Time doxycycline Allergy Intermediate NAUSEA Verified 12/09/19 10:44 Penicillins Allergy Intermediate VOMITING Verified 12/09/19 10:44 clindamycin Allergy Mild VOMITING Verified 12/09/19 10:44 levofloxacin [From Levaquin] Allergy ANAPHYLAXIS Verified 12/09/19 10:44 Travel Screening - Travel/Exposure Within Last 30 Days Have you traveled within the last 30 days?: No - Travel/Exposure Within Last Year Have you traveled outside the [place] in the last year?: No - Additonal Travel Details Have you been exposed to anyone with a communicable illness?: No - Travel Symptoms Symptom Screening: None Review of Systems Reviewed: No additional complaints except as noted below Constitutional: Reports: As per HPI. Denies: Chills, Fever, Malaise, Night sweats, Weakness, Weight change Eyes: Reports: As per HPI. Denies: Eye discharge, Eye pain, Photophobia, Vision change ENT: Reports: As per HPI. Denies: Congestion, Dental pain, Ear pain, Epistaxis, Hearing loss, Throat pain Respiratory: Reports: As per HPI, Dyspnea. Denies: Cough, Hemoptysis, Stridor, Wheezes Cardiovascular: Reports: As per HPI. Denies: Arrhythmia, Chest pain, Dyspnea on exertion, Edema, Murmurs, Orthopnea, Palpitations, Paroxysmal nocturnal dyspnea, Rheumatic Fever, Syncope Endocrine: Reports: As per HPI. Denies: Fatigue, Heat or cold intolerance, Polydipsia, Polyuria Gastrointestinal: Reports: As per HPI. Denies: Abdominal pain, Constipation, Diarrhea, Hematemesis, Hematochezia, Melena, Nausea, Vomiting Genitourinary: Reports: As per HPI. Denies: Abnormal menses, Discharge, Dyspareunia, Dysuria, Frequency, Hematuria, Incontinence, Retention, Urgency Musculoskeletal: Reports: As per HPI. Denies: Arthralgia, Back pain, Gout, Joint swelling, Myalgia, Neck pain Skin: Reports: As per HPI. Denies: Bruising, Change in color, Change in hair/nails, Lesions, Pruritus, Rash Neurological: Reports: As per HPI. Denies: Abnormal gait, Confusion, Headache, Numbness, Paresthesias, Seizure, Tingling, Tremors, Vertigo, Weakness Psychiatric: Reports: As per HPI. Denies: Anxiety, Auditory hallucinations, Depression, Homicidal thoughts, Suicidal thoughts, Visual hallucinations Hematological/Lymphatic: Reports: As per HPI. Denies: Anemia, Blood Clots, Easy bleeding, Easy bruising, Swollen glands Past Medical History - SOCIAL HISTORY Smoking Status: Current some day smoker Alcohol Use: Rare, Occasional Drug Use: None - RESPIRATORY Hx Respiratory Disorders: Yes Hx Asthma: Yes Hx Bronchitis: Yes - CARDIOVASCULAR Hx Cardio Disorders: No - NEURO Hx Neuro Disorders: Yes Hx Headaches: Yes - GI Hx GI Disorders: No - Hx Genitourinary Disorders: No - ENDOCRINE Hx Endocrine Disorders: No - MUSCULOSKELETAL Hx Musculoskeletal Disorders: No - PSYCH Hx Psych Problems: Yes Hx Anxiety: Yes Hx Depression: Yes - HEMATOLOGY/ONCOLOGY Hx Hematology/Oncology Disorders: No Family Medical History Any Significant Family History?: Yes Hx Alcohol Use: Father, Mother Hx Anxiety: Father, Mother Hx Dementia: Grandparents Hx Depression: Father, Mother Hx Seizures: Mother Physical Exam - General General Appearance: Alert, Oriented x3, Cooperative, No acute distress - Head Head exam: Normal inspection - Eye Eye exam: Normal appearance, PERRL Pupils: Normal accommodation - ENT ENT exam: Normal exam, Mucous membranes moist, Normal external ear exam, Normal orophraynx, TM's normal bilaterally Ear exam: Normal external inspection. negative: External canal tenderness Nasal Exam: Normal inspection. negative: Discharge, Sinus tenderness Mouth exam: Normal external inspection, Tongue normal Teeth exam: Normal inspection. negative: Dental caries Throat exam: Normal inspection. negative: Tonsillar erythema, Tonsillar exudate - Neck Neck exam: Normal inspection, Full ROM. negative: Tenderness - Respiratory Respiratory exam: Wheezes. negative: Respiratory distress - Cardiovascular Cardiovascular Exam: Regular rate, Normal rhythm, Normal heart sounds - GI/Abdominal GI/Abdominal exam: Soft, Normal bowel sounds. negative: Tenderness - Rectal Rectal exam: Deferred - exam: Deferred - Extremities Extremities exam: Normal inspection, Full ROM, Normal capillary refill. negative: Tenderness - Back Back exam: Reports: Normal inspection, Full ROM. Denies: Muscle spasm, Rash noted, Tenderness - Neurological Neurological exam: Alert, Normal gait, Oriented X3, Reflexes normal - Psychiatric Psychiatric exam: Normal affect, Normal mood - Skin Skin exam: Dry, Intact, Normal color, Warm Course Vital Signs 12/09/19 10:36 Temperature 98.8 F Pulse Rate 104 H Respiratory 20 Rate Blood Pressure 115/70 Pulse Ox 96 Medical Decision Making - Data Complexity MDM Data: Labs Ordered and/or Reviewed, X-Ray Ordered and/or Reviewed (chest xray negative) - Lab Data Lab Results 12/09/19 Range/Units Unknown Group A Strep Screen Negative (NEGATIVE) Disposition Clinical Impression: Bronchitis Disposition: Home, Self-Care Condition: (1) Good Instructions: Acute Bronchitis (ED) Additional Instructions: fluids robitussin dm cough syrup prednisone twice aday for 5 days continue albuterol inhaler follow up with family Dr in 5 days sooner if worse Prescriptions: Prednisone [Prednisone 20Mg] 20 mg PO BID #10 tab Forms: Patient Portal Access Time of Disposition: 12:33 Quality - Quality Measures Quality Measures: N/A - Blood Pressure Screening Does Patient Have Any of the Following: No Blood Pressure Classification: Normal BP Reading Systolic Measurement: 115 Diastolic Measurement: 70 Screening for High Blood Pressure: < Normal BP, F/U Not Required > [[id number]]
--- NOTE | 2019-12-09 11:57 | RADIOLOGY REPORT ---
EXAMINATION: Two View Chest Radiographs EXAM DATE: 12/09/2019 11:39 AM TECHNIQUE: Frontal and lateral views INDICATION: cough COMPARISON: 06/20/2019 ENCOUNTER: Not applicable FINDINGS: The heart, mediastinum, and pulmonary vasculature are normal. No lung consolidation or pleural effu sions are present. IMPRESSION: No acute cardiopulmonary findings. Dictated by: Calixto Dorantes MD on 12/09/2019 11:53 AM. .
== END 2019-12-09 12:39 | disposition home or self-care (01) ==
LOC: ER 10:33
DX: J20.9 Acute bronchitis, unspecified (principal); F17.210 Nicotine dependence, cigarettes, uncomplicated
CPT/HCPCS: 71046; 87400; 87880; 99283; J7512